=== PATIENT | female | born 1935 | race African-American/Black ===

== ENCOUNTER 2017-01-22 13:43 | Inpatient (IN) | payer MEDICARE ==
[~2017-01-22] VITALS: Ht 160 cm; Wt 68.0 kg
[2017-01-22 13:41] VITALS: BP 120/69
[~2017-01-22 13:43] MED LIST: AMITIZA24 MCG ORAL; AMLODIPINE BESY10 MG ORAL; ASPIR-LOW81 MG ORAL; ATORVASTATIN CA10 MG ORAL; ATORVASTATIN CA10 MG PO; BACTRIM-DS1 EA PO; CIPRO500 MG PO; COLACE100 MG ORAL; COZAAR25 MG ORAL; COZAAR50 MG PO; ENALAPRIL; ENALAPRIL MALEA20 MG ORAL; ENALAPRIL MALEA20 MG PO; ENALAPRIL MALEAT5 MG ORAL; GLUCOPHAGE500 MG PO; HYDROCHLOROTHIA25 MG ORAL; LEVOFLOXACIN500 MG ORAL; LIPITOR; MACROBID 100 M100 MG PO; MECLIZINE HCL25 MG PO; METFORMIN; METFORMIN HCL1000 M1 ORAL; METFORMIN HCL850 M1 ORAL; NORVASC; UNKNOWN BP MED; UNOBMED; ZEBUTAL CAPSUL1 EACH PO
[2017-01-22 15:05] LABS: BASOPHILS % (AUTO) 1.4 % (0.0-2.0); EOSINOPHILS % (AUTO) 2.3 % (0.0-3.0); LYMPHOCYTES % (AUTO) 19.6 % (20.0-45.0); MEAN CORPUSCULAR HEMOGLOBIN 26.8 PG (27.0-31.0); MEAN CORPUSCULAR HGB CONC 31.4 G/DL (32.0-36.0); MEAN CORPUSCULAR VOLUME 85 FL (80-99); MEAN PLATELET VOLUME 7.4 FL (6.5-10.1); NEUTROPHILS % (AUTO) 70.7 % (45.0-75.0); PLATELET COUNT 265 K/UL (150-450); RED BLOOD COUNT 4.28 M/UL (4.20-5.40); RED CELL DISTRIBUTION WIDTH 17.2 % (11.6-14.8); WHITE BLOOD COUNT 8.8 K/UL (4.8-10.8)
[2017-01-22 15:18] LABS: ALANINE AMINOTRANSFERASE 10 U/L (3-33); ALBUMIN/GLOBULIN RATIO 1.2 (1.0-2.7); ANION GAP 21 (5-15); ASPARTATE AMINO TRANSFERASE 39 U/L (5-40); CALCIUM 9.5 mg/dL (8.6-10.2); CARBON DIOXIDE 22 mEQ/L (20-30); CHLORIDE 91 mEQ/L (98-107); CREATININE 1.2 mg/dL (0.5-0.9); HEMOLYSIS 117; POTASSIUM 4.3 mEQ/L (3.4-4.9); SODIUM 134 mEQ/L (135-145); TOTAL PROTEIN 7.4 g/dL (6.6-8.7)
[2017-01-22 15:27] LABS: TROPONIN I < 0.30 ng/mL (<=0.30)
[2017-01-22 15:35] LABS: CKMB 1.7 ng/mL (< 3.8)
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
[2017-01-22 15:51] VITALS: BP 106/46
[2017-01-22 16:16] LABS: APPEARANCE,URINE SLIGHTLY CLOUDY; KETONES,URINE NEGATIVE (NEGATIVE); LEUKOCYTE ESTERASE ,URINE 3+ (NEGATIVE); NITRITE,URINE NEGATIVE (NEGATIVE); PH,URINE 6 (4.5-8.0); PROTEIN,URINE 2+ (NEGATIVE); UROBILINOGEN,URINE NORMAL MG/DL (0.0-1.0)
[2017-01-22 16:28] LABS: AMORPHOUS SEDIMENT,UR FEW /LPF; BACTERIA,URINE MANY /HPF; SQUAMOUS EPITHELIAL CELL,UR FEW /LPF (NONE/OCC)
--- NOTE | 2017-01-22 16:57 | Diagnostic Imaging Report ---
Indication: Chest pain Technique: One view of the chest Comparison: 07/29/2014 Findings: Lungs and pleural spaces are clear. Heart size is normal no significant change Impression: No acute process
[2017-01-22 18:21] VITALS: BP 112/50
[2017-01-22 20:00] VITALS: BP 131/72
[2017-01-22] MEDS ORDERED: Atorvastatin 20mg tab ORAL SCH (21:00)
[2017-01-22] MEDS: NovoLOG Insulin Flexpen SUBQ SCH (21:50)
[2017-01-23] VITALS: BP 114/56
[2017-01-23 04:00] VITALS: BP 129/57
[2017-01-23] MEDS ORDERED: NovoLOG Insulin Flexpen SUBQ SCH (06:30)
[2017-01-23] MEDS: NovoLOG Insulin Flexpen SUBQ SCH ×4 (06:30→20:22)
[2017-01-23 07:29] LABS: EOSINOPHILS % (AUTO) 2.3 % (0.0-3.0); LYMPHOCYTES % (AUTO) 26.9 % (20.0-45.0); MEAN CORPUSCULAR HEMOGLOBIN 26.6 PG (27.0-31.0); MEAN CORPUSCULAR HGB CONC 31.4 G/DL (32.0-36.0); MEAN CORPUSCULAR VOLUME 85 FL (80-99); MONOCYTES % (AUTO) 7.7 % (1.0-10.0); NEUTROPHILS % (AUTO) 62.2 % (45.0-75.0); PLATELET COUNT 260 K/UL (150-450); RED CELL DISTRIBUTION WIDTH 17.5 % (11.6-14.8); WHITE BLOOD COUNT 6.7 K/UL (4.8-10.8)
[2017-01-23 07:40] LABS: ALANINE AMINOTRANSFERASE 7 U/L (3-33); ALBUMIN/GLOBULIN RATIO 1.2 (1.0-2.7); ANION GAP 16 (5-15); ASPARTATE AMINO TRANSFERASE 24 U/L (5-40); CALCIUM 9.1 mg/dL (8.6-10.2); CARBON DIOXIDE 27 mEQ/L (20-30); CHLORIDE 97 mEQ/L (98-107); CREATININE 0.9 mg/dL (0.5-0.9); HEMOLYSIS 3; POTASSIUM 3.6 mEQ/L (3.4-4.9); SODIUM 140 mEQ/L (135-145); TOTAL PROTEIN 6.8 g/dL (6.6-8.7)
[2017-01-23 07:54] LABS: HEMOGLOBIN A1C 5.4 % (< 6.0)
[2017-01-23 07:59] VITALS: BP 91/55
[2017-01-23] MEDS: Docusate 100mg tablet ORAL SCH ×2 (08:14→17:28)
[2017-01-23] MEDS: Aspirin Baby 81mg ORAL SCH (08:14)
[2017-01-23] MEDS: metFORMIN 500mg tab ORAL SCH ×2 (09:15→17:28)
--- NOTE | 2017-01-23 09:55 | General Progress Note ---
Progress Note Progress Note [id number] full note dictated HENRI TIMMONS Jan 23, 2017 09:55
[2017-01-23 11:04] VITALS: BP 135/53
--- NOTE | 2017-01-23 13:20 | Cardiology Progress Note ---
Assessment/Plan Assessment/Plan The patient is seen and examined, full consult note will be dictated shortly. Objective Last 24 Hour Vital Signs Date Time Temp Pulse Resp B/P Pulse Ox O2 Delivery O2 Flow Rate FiO2 01/23/17 11:04 97.7 62 14 135/53 97 Room Air 01/23/17 07:59 97.9 70 14 91/55 98 Room Air 01/23/17 04:00 97.5 54 19 129/57 95 Room Air 01/23/17 00:00 98.1 56 18 114/56 98 Room Air 01/22/17 20:00 96.4 78 20 131/72 98 Room Air 01/22/17 19:32 98.1 65 16 108/48 100 Room Air 01/22/17 18:21 98.1 83 16 112/50 100 Room Air 01/22/17 15:51 69 16 106/46 100 Room Air 01/22/17 13:41 16 120/69 100 Room Air 01/22/17 13:36 70 16 120/69 100 Room Air Intake and Output 01/22/17 01/23/17 19:00 07:00 Intake Total 0 ml 830 ml Balance 0 ml 830 ml Intake Oral 0 ml 230 ml IV Total 600 ml # Voids 1 Laboratory Tests Test 01/22/17 14:45 01/22/17 16:00 01/23/17 05:35 White Blood Count 8.8 K/UL (4.8-10.8) 6.7 K/UL (4.8-10.8) Red Blood Count 4.28 M/UL (4.20-5.40) 4.00 M/UL (4.20-5.40) L Hemoglobin 11.5 G/DL (12.0-16.0) L 10.7 G/DL (12.0-16.0) L Hematocrit 36.6 % (37.0-47.0) L 33.9 % (37.0-47.0) L Mean Corpuscular Volume 85 FL (80-99) 85 FL (80-99) Mean Corpuscular Hemoglobin 26.8 PG (27.0-31.0) L 26.6 PG (27.0-31.0) L Mean Corpuscular Hemoglobin Concent 31.4 G/DL (32.0-36.0) L 31.4 G/DL (32.0-36.0) L Red Cell Distribution Width 17.2 % (11.6-14.8) H 17.5 % (11.6-14.8) H Platelet Count 265 K/UL (150-450) 260 K/UL (150-450) Mean Platelet Volume 7.4 FL (6.5-10.1) 8.0 FL (6.5-10.1) Neutrophils (%) (Auto) 70.7 % (45.0-75.0) 62.2 % (45.0-75.0) Lymphocytes (%) (Auto) 19.6 % (20.0-45.0) L 26.9 % (20.0-45.0) Monocytes (%) (Auto) 6.0 % (1.0-10.0) 7.7 % (1.0-10.0) Eosinophils (%) (Auto) 2.3 % (0.0-3.0) 2.3 % (0.0-3.0) Basophils (%) (Auto) 1.4 % (0.0-2.0) 1.0 % (0.0-2.0) Sodium Level 134 mEQ/L (135-145) L 140 mEQ/L (135-145) Potassium Level 4.3 mEQ/L (3.4-4.9) 3.6 mEQ/L (3.4-4.9) Chloride Level 91 mEQ/L (98-107) L 97 mEQ/L (98-107) L Carbon Dioxide Level 22 mEQ/L (20-30) 27 mEQ/L (20-30) Anion Gap 21 (5-15) H 16 (5-15) H Blood Urea Nitrogen 15 mg/dL (7-23) 13 mg/dL (7-23) Creatinine 1.2 mg/dL (0.5-0.9) H 0.9 mg/dL (0.5-0.9) Estimat Glomerular Filtration Rate mL/min (>60) mL/min (>60) Glucose Level 118 mg/dL (74-106) H 92 mg/dL (74-106) Calcium Level 9.5 mg/dL (8.6-10.2) 9.1 mg/dL (8.6-10.2) Total Bilirubin 0.2 mg/dL (0.0-1.2) 0.3 mg/dL (0.0-1.2) Aspartate Amino Transf (AST/SGOT) 39 U/L (5-40) 24 U/L (5-40) Alanine Aminotransferase (ALT/SGPT) 10 U/L (3-33) 7 U/L (3-33) Alkaline Phosphatase 71 U/L (35-104) 67 U/L (35-104) Total Creatine Kinase 54 U/L (26-140) Creatine Kinase MB 1.7 ng/mL (< 3.8) Creatine Kinase MB Relative Index 3.1 Troponin I < 0.30 ng/mL (<=0.30) Total Protein 7.4 g/dL (6.6-8.7) 6.8 g/dL (6.6-8.7) Albumin 4.1 g/dL (3.5-5.2) 3.8 g/dL (3.5-5.2) Globulin 3.3 g/dL 3.0 g/dL Albumin/Globulin Ratio 1.2 (1.0-2.7) 1.2 (1.0-2.7) Urine Color Yellow Urine Appearance Slightly cloudy Urine pH 6 (4.5-8.0) Urine Specific [place] 1.010 (1.005-1.035) Urine Protein 2+ (NEGATIVE) H Urine Glucose (UA) Negative (NEGATIVE) Urine Ketones Negative (NEGATIVE) Urine Occult Blood 1+ (NEGATIVE) H Urine Nitrite Negative (NEGATIVE) Urine Bilirubin Negative (NEGATIVE) Urine Urobilinogen Normal MG/DL (0.0-1.0) Urine Leukocyte Esterase 3+ (NEGATIVE) H Urine RBC 2-4 /HPF (0 - 2) H Urine WBC 5-10 /HPF (0 - 2) H Urine Squamous Epithelial Cells Few /LPF (NONE/OCC) Urine Amorphous Sediment Few /LPF (NONE) H Urine Bacteria Many /HPF (NONE) H Hemoglobin A1c 5.4 % (< 6.0) Microbiology Date/Time Source Procedure Growth Status 01/22/17 16:00 Urine,Clean Catch Urine Culture - Preliminary Gram Negative Bacillus 1 Resulted PATRICIA ANDERSON Jan 23, 2017 13:20
[2017-01-23 17:00] VITALS: BP 95/64
[2017-01-23] MEDS ORDERED: Levofloxacin 250mg/D5W 50ml IVPB SCH (17:00)
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
[2017-01-23 20:00] VITALS: BP 133/61
[2017-01-23] MEDS: Atorvastatin 20mg tab ORAL SCH (20:41)
[2017-01-24 00:48] VITALS: BP 108/61
[2017-01-24] MEDS: NovoLOG Insulin Flexpen SUBQ SCH ×2 (06:14→11:30)
[2017-01-24 08:08] VITALS: BP 141/69
[2017-01-24] MEDS: metFORMIN 500mg tab ORAL SCH ×2 (08:53→17:09)
[2017-01-24] MEDS: Aspirin Baby 81mg ORAL SCH (08:53)
[2017-01-24] MEDS: Docusate 100mg tablet ORAL SCH ×2 (08:53→17:09)
[2017-01-24 12:34] VITALS: BP 110/46
--- NOTE | 2017-01-24 12:47 | Infectious Diseases Prog Note ---
Assessment/Plan Assessment/Plan Full consult dictated: A) 1) e.coli uti, complicated uti 2) pre-syncope 3) dm, htn, dm, pvd, left bka, ckd, bradycardia, anemia, hyperlipidemia 4) allergies - pcn, fh-nc, mar noted, notes and records reviewed 5) d/w RN P) 1) rocephin (patient tolerated pcn in past) 2) check labs 3) bs/bp monitoring 4) cardiology f/u 5) orders entered and noted 6) thank you 7) medicine for Dr. Nguyen Subjective Allergies: Coded Allergies: PENICILLINS (Verified Allergy, Severe, Hives, 09/01/12) Objective Vital Signs Last 24 Hour Vital Signs Date Time Temp Pulse Resp B/P Pulse Ox O2 Delivery O2 Flow Rate FiO2 01/24/17 08:54 141/69 01/24/17 08:53 63 141/69 01/24/17 08:08 97.2 63 20 141/69 99 Room Air 01/24/17 00:48 97.9 60 19 108/61 98 Room Air 01/23/17 20:00 97.9 70 20 133/61 97 Room Air 01/23/17 17:00 97.5 72 20 95/64 100 Nasal Cannula 3.0 Height (Feet): 5 Height (Inches): 3.00 Weight (Pounds): 150 Microbiology Date/Time Source Procedure Growth Status 01/22/17 16:00 Urine,Clean Catch Urine Culture - Final Escherichia Coli Complete Current Medications Medications (Trade) Dose Ordered Sig/Noe Route PRN Reason Start Time Stop Time Status Last Admin Dose Admin Acetaminophen (Tylenol) 650 mg Q6H PRN ORAL Mild Pain/Temp > 100.5 01/22/17 21:00 02/21/17 20:59 Amlodipine Besylate (Norvasc) 10 mg DAILY ORAL 01/23/17 09:00 02/22/17 08:59 01/24/17 08:53 Aspirin (ASA) 81 mg DAILY ORAL 01/23/17 09:00 02/22/17 08:59 01/24/17 08:53 Atorvastatin Calcium (Lipitor) 20 mg BEDTIME ORAL 01/23/17 21:00 02/22/17 20:59 01/23/17 20:41 Docusate Sodium (Colace) 100 mg BID ORAL 01/23/17 09:00 02/22/17 08:59 01/24/17 08:53 Enalapril Maleate (Vasotec) 20 mg DAILY ORAL 01/23/17 09:00 02/22/17 08:59 01/24/17 08:54 Hydrochlorothiazide (Hydrodiuril) 25 mg DAILY ORAL 01/23/17 09:00 02/22/17 08:59 01/24/17 08:53 Levofloxacin (Levaquin) 50 ml @ 50 mls/hr Q24H IVPB 01/23/17 17:00 01/30/17 16:59 01/23/17 17:28 Metformin HCl (Glucophage) 500 mg BID ORAL 01/23/17 09:00 02/22/17 08:59 01/24/17 08:53 Ondansetron HCl 4 mg 4 mg Q4H PRN IVP Nausea & Vomiting 01/22/17 21:00 02/21/17 20:59 LUCERO NOLASCO Jan 24, 2017 12:47
[2017-01-24] MEDS: cefTRIAXone 1 GM in NS 55 ML IVPB SCH (14:47)
[2017-01-24 16:06] VITALS: BP 101/42
--- NOTE | 2017-01-24 19:38 | Consultation ---
DATE OF CONSULTATION: 01/24/2017 INFECTIOUS DISEASE CONSULTATION CONSULTING PHYSICIAN: Neli Yan M.D. ATTENDING PHYSICIAN: Ahmet Nguyen M.D. REASON FOR CONSULTATION: E. coli UTI and complicated UTI. CHIEF COMPLAINT: The patient's chief complaint coming in to the hospital is presyncopal episode and weakness. I am covering today for Dr. Ackerman, who is covering for Dr. Nguyen. Also, this is an Infectious Disease consultation in addition to medical coverage. HISTORY OF PRESENT ILLNESS: This is a very pleasant 81-year-old female with history of multiple medical problems including diabetes, hypertension, and peripheral vascular disease, including left leg amputation. The patient was noted to have weakness and a presyncopal episode or dizziness. The patient has been admitted for further workup. It was noted that she has a urinary tract infection and this is likely a complicated urinary tract infection causing her dizziness and presyncopal symptoms. Infectious Disease consultation was requested. She is allergic to penicillins. She was started on Levaquin, however, the E. coli is resistant to Levaquin. The patient's antibiotics will be changed to Rocephin or ceftriaxone 1 g IV q.24 hours. I discussed with pharmacy and the patient had ceftaroline and cefepime in the past and thus tolerates cephalosporins. MAR was noted. Orders were noted. Notes were reviewed. Case was discussed with Dr. Ackerman. Case was discussed with RN. REVIEW OF SYSTEMS: Constitutional: Generalized weakness and fatigue. No fever, chills, night sweats, or weight loss. Head And Neck: No thrush or dysphagia. Cardiac: No chest pain or palpitations. No pressors. Gastrointestinal: No nausea, vomiting, or diarrhea. Genitourinary: She has dysuria and frequency. No Colón. Pulmonary: No congestion or shortness of breath. Skin: No rash or itching. Extremity: She had left leg amputation. Neurologic: No seizures. She did have dizziness and presyncopal episodes coming in. PAST MEDICAL HISTORY: Includes the history of the following. The patient has a past medical history of diabetes mellitus, history of hypertension, history of peripheral vascular disease, history of left leg amputation, BKA to be specific, history of chronic kidney disease, bradycardia, anemia, and hyperlipidemia. Please see past medical history in medical order. MEDICATIONS: Upon reviewing the MAR, the patient is on the following medications. She is on atorvastatin, Levaquin, which I switched to or changed to Rocephin. She is on amlodipine, aspirin, docusate, enalapril, hydrochlorothiazide, metformin, acetaminophen, and Zofran. Please see medications in medical order. Outside medications noted and reconciliated. ALLERGIES: Penicillin. Tolerates cephalosporins. FAMILY HISTORY: Noncontributory. Negative for exposure to tuberculosis or cancer. SOCIAL HISTORY: Negative for smoking, alcohol, or drug use. PHYSICAL EXAMINATION: VITAL SIGNS: Temperature is 97.2 degrees, pulse rate 63, respiratory rate 20, blood pressure 141/69, and saturation 99%. She has had no significant temperature spikes. GENERAL: Alert, responsive, and oriented x3. No acute distress. HEENT AND NECK: Oral exam, no thrush. Eye exam, no icterus. Neck is supple. No JVD. Normocephalic. No facial droop. No neck stiffness. HEART: Regular. No gallop or murmur. No friction rub. ABDOMEN: Soft. Positive bowel sounds. Nontender. LUNGS: Clear bilaterally. No rhonchi or rales. SKIN: No rash or dermatitis. MUSCULOSKELETAL: Right leg, no evidence septic arthritis. Right leg, no cellulitis. PERIPHERAL VASCULAR: She has left leg amputation. RECTAL: Deferred. PELVIC: Deferred. BREASTS: Deferred. GENITOURINARY: No Colón. LINES: Line sites without phlebitis. No CVA tenderness. NEUROLOGIC: Intact and nonfocal. IMAGING STUDIES: Her chest x-ray showed no acute disease. No consolidation. Noted and reviewed. LABORATORY DATA: White count 6.7, hemoglobin 10.7, and platelet count is 260,000. Creatinine was as high as 1.2, now it is 0.9. Sodium is 134 and now it is 140. LFTs were noted. They were unremarkable. CULTURES: Urine culture grew out greater than 100,000 E. coli, sensitive to cephalosporins and carbapenems and resistant fluoroquinolones. The patient's urinalysis had 3+ esterase, 5 to 10 white blood cells, and many bacteria. ASSESSMENT AND PLAN: 1. The patient has a complicated Escherichia coli urinary tract infection with subsequent presyncopal episode and dizziness. At this time, the Escherichia coli is resistant to fluoroquinolones and does Levaquin would not be effective in this patient. We will change her antibiotics to ceftriaxone 1 g IV q.24 hours and as discussed with pharmacy, the patient tolerated cephalosporins in the past. Continue Rocephin and hopefully if she improves in the next several days, we will transition to oral antibiotics for the remainder of her treatment course. The organisms are complicated Escherichia coli urinary tract infection. 2. The patient has history of diabetes. 3. Hypertension. 4. Chronic kidney disease. 5. Peripheral vascular disease. 6. Left below-knee amputation. 7. Blood sugar and blood pressure control per primary for diabetes and hypertension. 8. Bradycardia. 9. Anemia. 10. Hyperlipidemia. 11. Allergies to penicillin. 12. Family history is noncontributory. 13. Social history is negative. 14. MAR was noted. 15. Case was discussed with RN. Notes and records reviewed. 16. I discussed the case with the charge nurse on the floor. Her blood sugars are in excellent control and she had a normal hemoglobin A1c or glycosylated hemoglobin. We will discontinue Accu-Cheks at this time. Neli Yan M.D. DR: JONES JOB#: [id number] CC:
[2017-01-24 20:00] VITALS: BP 121/56
[2017-01-24] MEDS: Atorvastatin 20mg tab ORAL SCH (20:48)
[2017-01-25 01:10] VITALS: BP 94/39
[2017-01-25 04:00] VITALS: BP 138/51
[2017-01-25 07:07] LABS: ANION GAP 13 (5-15); CALCIUM 9.5 mg/dL (8.6-10.2); CARBON DIOXIDE 30 mEQ/L (20-30); CHLORIDE 97 mEQ/L (98-107); CREATININE 0.8 mg/dL (0.5-0.9); HEMOLYSIS 1; POTASSIUM 3.7 mEQ/L (3.4-4.9); SODIUM 140 mEQ/L (135-145)
[2017-01-25 07:31] LABS: BASOPHILS % (AUTO) 1.1 % (0.0-2.0); EOSINOPHILS % (AUTO) 2.9 % (0.0-3.0); LYMPHOCYTES % (AUTO) 33.4 % (20.0-45.0); MEAN CORPUSCULAR HEMOGLOBIN 27.2 PG (27.0-31.0); MEAN CORPUSCULAR HGB CONC 31.5 G/DL (32.0-36.0); MEAN CORPUSCULAR VOLUME 86 FL (80-99); MEAN PLATELET VOLUME 7.7 FL (6.5-10.1); MONOCYTES % (AUTO) 7.3 % (1.0-10.0); NEUTROPHILS % (AUTO) 55.3 % (45.0-75.0); PLATELET COUNT 262 K/UL (150-450); RED BLOOD COUNT 4.04 M/UL (4.20-5.40); RED CELL DISTRIBUTION WIDTH 17.5 % (11.6-14.8); WHITE BLOOD COUNT 7.1 K/UL (4.8-10.8)
[2017-01-25 07:58] VITALS: BP 122/57
[2017-01-25] MEDS: metFORMIN 500mg tab ORAL SCH ×2 (08:00→17:42)
[2017-01-25] MEDS: Aspirin Baby 81mg ORAL SCH (08:00)
[2017-01-25] MEDS: Docusate 100mg tablet ORAL SCH ×2 (08:01→17:42)
[2017-01-25] MEDS ORDERED: Tubing IV Secondary IV ONE (08:38)
[2017-01-25] MEDS ORDERED: NS 275ml ONE (08:38)
--- NOTE | 2017-01-25 10:47 | Infectious Diseases Prog Note ---
Assessment/Plan Assessment/Plan A) 1) e.coli uti, complicated uti - clinically improved 2) pre-syncope - no further symptoms 3) dm, htn, dm, pvd, left bka, ckd, bradycardia, anemia, hyperlipidemia 4) allergies - pcn, fh-nc, mar noted, notes and records reviewed 5) d/w RN P) 1) rocephin for now 2) plan on discharge next 1-2 days if continues to improve and transition to oral abx 3) bs/bp monitoring and treatment, check labs 4) cardiology f/u 5) orders entered and noted 6) medicine for Dr. Nguyen Subjective Constitutional: Denies: fever Respiratory: Denies: shortness of breath Cardiovascular: Denies: chest pain Gastrointestinal/Abdominal: Denies: diarrhea, nausea, vomiting Genitourinary: Reports: other - + celeste Neurologic: Denies: headache Psychiatric: Denies: depression Skin: Denies: rash Hematologic: Denies: bleeding Musculoskeletal: Denies: pain Allergies: Coded Allergies: PENICILLINS (Verified Allergy, Severe, Hives, 09/01/12) Objective Vital Signs Last 24 Hour Vital Signs Date Time Temp Pulse Resp B/P Pulse Ox O2 Delivery O2 Flow Rate FiO2 01/25/17 08:01 122/57 01/25/17 08:00 51 122/57 01/25/17 07:58 97.8 51 20 122/57 98 Room Air 01/25/17 04:30 53 01/25/17 04:00 97.7 47 20 138/51 99 Room Air 01/25/17 01:10 97.5 48 20 94/39 94 Room Air 01/24/17 21:49 96.8 01/24/17 20:00 96.8 57 20 121/56 97 Room Air 01/24/17 16:06 96.3 49 18 101/42 98 Room Air 01/24/17 12:34 97.7 57 20 110/46 95 Room Air Height (Feet): 5 Height (Inches): 3.00 Weight (Pounds): 150 General Appearance: no acute distress HEENT: normocephalic, atraumatic, anicteric, mucous membranes moist, PERRL, EOMI, pharynx normal, supple, no JVD Respiratory/Chest: lungs clear, normal breath sounds, no respiratory distress, no accessory muscle use Cardiovascular: normal peripheral pulses, normal rate, regular rhythm, no gallop/murmur, no JVD Abdomen: normal bowel sounds, soft, non tender, no organomegaly, non distended Genitourinary: other - no celeste Extremities: no cyanosis Skin: no rash Neurologic/Psychiatric: clinical writer II-XII grossly normal, alert, oriented x 3, responsive Lymphatic: no neck adenopathy Musculoskeletal: no effusion Objective chest x-ray - negative Microbiology Date/Time Source Procedure Growth Status 01/22/17 16:00 Urine,Clean Catch Urine Culture - Final Escherichia Coli Complete Laboratory Tests Test 01/25/17 05:25 White Blood Count 7.1 K/UL (4.8-10.8) Red Blood Count 4.04 M/UL (4.20-5.40) L Hemoglobin 11.0 G/DL (12.0-16.0) L Hematocrit 34.8 % (37.0-47.0) L Mean Corpuscular Volume 86 FL (80-99) Mean Corpuscular Hemoglobin 27.2 PG (27.0-31.0) Mean Corpuscular Hemoglobin Concent 31.5 G/DL (32.0-36.0) L Red Cell Distribution Width 17.5 % (11.6-14.8) H Platelet Count 262 K/UL (150-450) Mean Platelet Volume 7.7 FL (6.5-10.1) Neutrophils (%) (Auto) 55.3 % (45.0-75.0) Lymphocytes (%) (Auto) 33.4 % (20.0-45.0) Monocytes (%) (Auto) 7.3 % (1.0-10.0) Eosinophils (%) (Auto) 2.9 % (0.0-3.0) Basophils (%) (Auto) 1.1 % (0.0-2.0) Sodium Level 140 mEQ/L (135-145) Potassium Level 3.7 mEQ/L (3.4-4.9) Chloride Level 97 mEQ/L (98-107) L Carbon Dioxide Level 30 mEQ/L (20-30) Anion Gap 13 (5-15) Blood Urea Nitrogen 14 mg/dL (7-23) Creatinine 0.8 mg/dL (0.5-0.9) Estimat Glomerular Filtration Rate mL/min (>60) Glucose Level 88 mg/dL (74-106) Calcium Level 9.5 mg/dL (8.6-10.2) Current Medications Medications (Trade) Dose Ordered Sig/Noe Route PRN Reason Start Time Stop Time Status Last Admin Dose Admin Acetaminophen (Tylenol) 650 mg Q6H PRN ORAL Mild Pain/Temp > 100.5 01/22/17 21:00 02/21/17 20:59 01/24/17 20:50 Amlodipine Besylate (Norvasc) 10 mg DAILY ORAL 01/23/17 09:00 02/22/17 08:59 01/25/17 08:00 Aspirin (ASA) 81 mg DAILY ORAL 01/23/17 09:00 02/22/17 08:59 01/25/17 08:00 Atorvastatin Calcium 20 mg 20 mg BEDTIME ORAL 01/23/17 21:00 02/22/17 20:59 01/24/17 20:48 Ceftriaxone Sodium/Sodium Chloride (Rocephin/Sodium Chloride) 55 ml @ 110 mls/hr Q24H IVPB 01/24/17 14:00 01/31/17 13:59 01/24/17 14:47 Docusate Sodium (Colace) 100 mg BID ORAL 01/23/17 09:00 02/22/17 08:59 01/25/17 08:01 Enalapril Maleate (Vasotec) 20 mg DAILY ORAL 01/23/17 09:00 02/22/17 08:59 01/25/17 08:01 Hydrochlorothiazide (Hydrodiuril) 25 mg DAILY ORAL 01/23/17 09:00 02/22/17 08:59 01/25/17 08:01 Metformin HCl (Glucophage) 500 mg BID ORAL 01/23/17 09:00 02/22/17 08:59 01/25/17 08:00 Ondansetron HCl (Zofran) 4 mg Q4H PRN IVP Nausea & Vomiting 01/22/17 21:00 02/21/17 20:59 LUCERO NOLASCO Jan 25, 2017 10:47
[2017-01-25 12:29] VITALS: BP 111/45
[2017-01-25] MEDS: cefTRIAXone 1 GM in NS 55 ML IVPB SCH ×2 (14:00→14:29)
[2017-01-25 16:15] VITALS: BP 119/50
[2017-01-25 20:00] VITALS: BP 117/45
[2017-01-25] MEDS: Atorvastatin 20mg tab ORAL SCH (22:44)
[2017-01-25] MEDS: CEFUROXIME 250 MG ORAL SCH (22:44)
[2017-01-26] VITALS: BP 128/43
[2017-01-26 03:44] VITALS: BP 110/51
[2017-01-26 07:49] LABS: BASOPHILS % (AUTO) 1.5 % (0.0-2.0); EOSINOPHILS % (AUTO) 3.1 % (0.0-3.0); LYMPHOCYTES % (AUTO) 31.8 % (20.0-45.0); MEAN CORPUSCULAR HEMOGLOBIN 26.6 PG (27.0-31.0); MEAN CORPUSCULAR HGB CONC 30.9 G/DL (32.0-36.0); MEAN CORPUSCULAR VOLUME 86 FL (80-99); MEAN PLATELET VOLUME 7.9 FL (6.5-10.1); NEUTROPHILS % (AUTO) 55.6 % (45.0-75.0); PLATELET COUNT 264 K/UL (150-450); RED BLOOD COUNT 4.22 M/UL (4.20-5.40); RED CELL DISTRIBUTION WIDTH 17.2 % (11.6-14.8); WHITE BLOOD COUNT 6.1 K/UL (4.8-10.8)
[2017-01-26 08:00] VITALS: BP 116/55
[2017-01-26 08:18] LABS: ANION GAP 13 (5-15); CALCIUM 9.5 mg/dL (8.6-10.2); CARBON DIOXIDE 30 mEQ/L (20-30); CHLORIDE 97 mEQ/L (98-107); CREATININE 0.7 mg/dL (0.5-0.9); HEMOLYSIS 2; POTASSIUM 3.6 mEQ/L (3.4-4.9); SODIUM 140 mEQ/L (135-145)
[2017-01-26] MEDS: Aspirin Baby 81mg ORAL SCH (08:20)
[2017-01-26] MEDS: CEFUROXIME 250 MG ORAL SCH (08:20)
[2017-01-26] MEDS: Docusate 100mg tablet ORAL SCH (08:20)
[2017-01-26] MEDS: metFORMIN 500mg tab ORAL SCH (08:30)
[2017-01-26 12:00] VITALS: BP 110/60
--- NOTE | 2017-01-26 12:27 | Infectious Diseases Prog Note ---
Assessment/Plan Assessment/Plan A) 1) e.coli uti, complicated uti - clinically improved 2) pre-syncope - no further symptoms 3) dm, htn, dm, pvd, left bka, ckd, bradycardia, anemia, hyperlipidemia 4) allergies - pcn, fh-nc, mar noted, notes and records reviewed 5) d/w RN P) 1) ceftin x 5 days 2) discharge patient 3) bs/bp monitoring and treatment, check labs 4) discharge summary done 5) orders entered and noted 6) d/w Dr. Nguyen her outpatient MD Subjective Allergies: Coded Allergies: PENICILLINS (Verified Allergy, Severe, Hives, 09/01/12) Objective Vital Signs Last 24 Hour Vital Signs Date Time Temp Pulse Resp B/P Pulse Ox O2 Delivery O2 Flow Rate FiO2 01/26/17 08:30 116/55 01/26/17 08:29 58 116/55 01/26/17 08:00 97.5 58 18 116/55 98 Room Air 01/26/17 03:44 96.3 55 19 110/51 100 Room Air 01/26/17 00:00 96.6 50 19 128/43 100 Room Air 01/25/17 20:00 97.0 56 20 117/45 98 Room Air 01/25/17 16:15 97.5 62 18 119/50 98 Room Air 01/25/17 12:29 97.5 46 18 111/45 95 Room Air Height (Feet): 5 Height (Inches): 3.00 Weight (Pounds): 150 Objective chest x-ray - negative Laboratory Tests Test 01/26/17 05:35 White Blood Count 6.1 K/UL (4.8-10.8) Red Blood Count 4.22 M/UL (4.20-5.40) Hemoglobin 11.2 G/DL (12.0-16.0) L Hematocrit 36.4 % (37.0-47.0) L Mean Corpuscular Volume 86 FL (80-99) Mean Corpuscular Hemoglobin 26.6 PG (27.0-31.0) L Mean Corpuscular Hemoglobin Concent 30.9 G/DL (32.0-36.0) L Red Cell Distribution Width 17.2 % (11.6-14.8) H Platelet Count 264 K/UL (150-450) Mean Platelet Volume 7.9 FL (6.5-10.1) Neutrophils (%) (Auto) 55.6 % (45.0-75.0) Lymphocytes (%) (Auto) 31.8 % (20.0-45.0) Monocytes (%) (Auto) 8.0 % (1.0-10.0) Eosinophils (%) (Auto) 3.1 % (0.0-3.0) H Basophils (%) (Auto) 1.5 % (0.0-2.0) Sodium Level 140 mEQ/L (135-145) Potassium Level 3.6 mEQ/L (3.4-4.9) Chloride Level 97 mEQ/L (98-107) L Carbon Dioxide Level 30 mEQ/L (20-30) Anion Gap 13 (5-15) Blood Urea Nitrogen 13 mg/dL (7-23) Creatinine 0.7 mg/dL (0.5-0.9) Estimat Glomerular Filtration Rate mL/min (>60) Glucose Level 85 mg/dL (74-106) Calcium Level 9.5 mg/dL (8.6-10.2) Current Medications Medications (Trade) Dose Ordered Sig/Noe Route PRN Reason Start Time Stop Time Status Last Admin Dose Admin Acetaminophen (Tylenol) 650 mg Q6H PRN ORAL Mild Pain/Temp > 100.5 01/22/17 21:00 02/21/17 20:59 01/24/17 20:50 Amlodipine Besylate (Norvasc) 10 mg DAILY ORAL 01/23/17 09:00 02/22/17 08:59 01/26/17 08:29 Aspirin (ASA) 81 mg DAILY ORAL 01/23/17 09:00 02/22/17 08:59 01/26/17 08:20 Atorvastatin Calcium (Lipitor) 20 mg BEDTIME ORAL 01/23/17 21:00 02/22/17 20:59 01/25/17 22:44 Cefuroxime Axetil (Ceftin) 500 mg EVERY 12 HOURS ORAL 01/25/17 21:00 02/01/17 20:59 01/26/17 08:20 Docusate Sodium (Colace) 100 mg BID ORAL 01/23/17 09:00 02/22/17 08:59 01/26/17 08:20 Enalapril Maleate (Vasotec) 20 mg DAILY ORAL 01/23/17 09:00 02/22/17 08:59 01/26/17 08:30 Hydrochlorothiazide (Hydrodiuril) 25 mg DAILY ORAL 01/23/17 09:00 02/22/17 08:59 01/26/17 08:30 Metformin HCl (Glucophage) 500 mg BID ORAL 01/23/17 09:00 02/22/17 08:59 01/26/17 08:30 Ondansetron HCl (Zofran) 4 mg Q4H PRN IVP Nausea & Vomiting 01/22/17 21:00 02/21/17 20:59 LUCERO NOLASCO Jan 26, 2017 12:27
[2017-01-26] MEDS ORDERED: CEFUROXIME250 MG ORAL (12:42)
--- NOTE | 2017-01-26 17:05 | Cardiology Report ---
APPROVED REPORT EKG Measurement Heart [id number] Normal sinus rhythm Right bundle branch block Left anterior fascicular block Bifascicular block Possible Lateral infarct, age undetermined Abnormal ECG
--- NOTE | 2017-01-27 02:07 | Discharge Summary ---
DATE OF ADMISSION: 01/22/2017 DATE OF DISCHARGE: 01/26/2017 ATTENDING PHYSICIAN: Ahmet Nguyen M.D., and subsequently Monica Ackerman M.D. This is a discharge summary/medicine coverage note. ADMITTING DIAGNOSES: 1. Presyncope, weakness. 2. Urinary tract infection/complicated urinary tract infection with presyncopal episode and weakness. 3. Diabetes. 4. Hypertension. 5. Peripheral vascular disease. 6. Left below-knee amputation. 7. Chronic kidney disease. 8. Bradycardia. 9. Anemia. 10. Hyperlipidemia. DISCHARGE DIAGNOSES: 1. Complicated Escherichia coli urinary tract infection. 2. Presyncope and weakness that is resolved. 3. Diabetes, well controlled. 4. Hypertension, well controlled. 5. Peripheral vascular disease. 6. Left below-knee amputation. 7. Chronic kidney disease. 8. Bradycardia. 9. Anemia. 10. Hyperlipidemia. HOSPITAL COURSE: This is a very pleasant 81-year-old female, who came in to [facility] with weakness and presyncopal episode and also dizziness. The patient was seen by Cardiology. The patient's symptoms have improved. During the hospitalization, it was noted that she had urinary tract infection secondary to E.coli. She was given Rocephin and her symptoms overall improved. The patient was subsequently switched to Ceftin 500 mg p.o. b.i.d. with which the organism was sensitive to. She did not have IV access. The patient's symptoms have significantly improved and I will discharge the patient. Most likely, her symptoms are secondary to complicated UTI. Her blood sugar and blood pressure were well controlled. Of note also, the patient is allergic to penicillin, but tolerates cephalosporin. DISCHARGE CONDITION: Stable. DISCHARGE DIET: Cardiac. DISCHARGE ACTIVITY: The patient uses a walker and is able to walk. At this time, she is doing well with that. DISCHARGE DISPOSITION: To follow up with Dr. Nguyen later this week or early next week. I will discuss with Dr. Nguyen about that and I will discuss with the patient. DISCHARGE ACTIVITY: As tolerated. DISCHARGE MEDICATIONS: Ceftin 500 mg p.o. b.i.d. for five more days. She is on Lipitor 20 mg a day, Norvasc 10 mg daily, aspirin once a day 81 mg, Colace 100 mg p.o. p.r.n., Vasotec 20 mg p.o. daily, hydrochlorothiazide 25 mg daily, metformin 500 mg p.o. b.i.d., and other medications are p.r.n. Neli Yan M.D. DR: LINA JOB#: [id number] CC: Monica Ackerman M.D.; Fax#: [phone]
--- NOTE | 2017-01-27 02:48 | Discharge Summary ---
DATE OF ADMISSION: 01/22/[address] Nguyen's office, her primary doctor in the outpatient setting and I went over the medications with his volleyball assistant coach. When I went over the medications, it seemed that the medications that she was taking on an outpatient basis are different than the ones that she has been taking inpatient. 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 In addition, she is taking Cozaar at home, but not enalapril. In addition, other medications that she is not taking here and she is taking there and vice versa. Because the only medication that would only be new for the patient is the Ceftin, I have written a script for Ceftin 500 mg p.o. b.i.d. for five more days, and I have told the patient and the nursing staff that she will take her home medications and I will give her a script for Ceftin 500 mg p.o. b.i.d. I also told Dr. Nguyen's office to get an appointment with the patient later on the week and to make sure to go over her medications at that time. Again, discussed with the nursing staff and the patient. She should follow up with Dr. Nguyen later this week or early next week. Neli Yan M.D. DR: Amy JOB#: [id number] CC:
== END 2017-01-26 15:15 | disposition home or self-care (01) | DRG 690 ==
LOC: ENRESERVDT → ENRESERVTM → EDBD 13:43 → EDBEDREQ 15:01 → EMR 15:03 → 4W 15:27 → EDBEDREQ 18:02
DX: N39.0 Urinary tract infection, site not specified (principal); N17.9 Acute kidney failure, unspecified; E11.9 Type 2 diabetes mellitus without complications; B96.20 Unspecified Escherichia coli [E. coli] as the cause of diseases classified elsewhere; R00.1 Bradycardia, unspecified; I12.9 Hypertensive chronic kidney disease with stage 1 through stage 4 chronic kidney disease, or unspecified chronic kidney disease; I73.9 Peripheral vascular disease, unspecified; E78.5 Hyperlipidemia, unspecified; N18.9 Chronic kidney disease, unspecified; I25.2 Old myocardial infarction; Z89.512 Acquired absence of left leg below knee; Z88.0 Allergy status to penicillin; R55 Syncope and collapse
CPT/HCPCS: 36415; 71010; 80048; 80053; 81003; 82550; 82553; 82962; 83036; 84484; 85025; 87086; 87181; 93005; J1815